=== PATIENT | male | born 1965 | race Caucasian/White ===

== ENCOUNTER 2016-10-22 19:22 | Emergency (ER) | payer OTHER ==
[~2016-10-22] VITALS: Ht 180.3 cm; Wt 92.0 kg
[~2016-10-22 19:22] MED LIST: LYRI75CA OR; METH10TA6 PO; VICOTAB4 PO; [UNRECOGNIZED DRUG - CODE] PO
[2016-10-22 19:31] VITALS: BP 136/92; PULSE 95; RESP 18; TEMP 98.4; O2SAT 95
[2016-10-22] MEDS ORDERED: SODIUM CHLOR 0.9% 1000 ML INJ 1,000 ML IV ONE (20:00)
[2016-10-22] MEDS ORDERED: KETOROLAC TROMETHAMINE 30 MG/ML (IVP) VIAL IV PUSH ONE (20:00)
--- NOTE | 2016-10-22 20:00 | PD ---
HPI Chief Complaint: Cold / Flu Symptoms Time Seen by Provider: 19:42 Travel History International Travel<30 days: No Contact w/Intl Traveler<30days: No Traveled to known affect area: No History of Present Illness HPI 50yo M with no PMH presents to the ED with c/o generalized pain for 1 week. + Throat discomfort. Feels there's phlegm but hard to cough up. +Nasal congestion. +Nausea. States he has pain in his bilateral eyeballs but no changes in vision or trauma. Denies any fever, headache, trauma, visual changes , pain with eye movement, chest pain, sob, abdominal pain, vomiting, focal weakness or numbness. Denies any recent travel. PFSH Past Medical History Cardiovascular Problems: No Diminished Hearing: No Past Surgical History Cholecystectomy: Yes Eye Surgery: Yes Social History Alcohol Use: Yes (OCCASIONAL) Tobacco Use: No Substance Use: No Allergies-Medications (Allergen,Severity, Reaction): Coded Allergies: No Known Allergies (Unverified , 10/22/16) Reported Meds & Prescriptions Reported Meds & Active Scripts Active No Active Prescriptions or Reported Medications Review of Systems Except as stated in HPI: all other systems reviewed are Neg Physical Exam Narrative GENERAL: 50yo M in mild distress. SKIN: Focused skin assessment warm/dry. HEAD: Atraumatic. Normocephalic. EYES: Pupils equal and round at 4mm bilaterally. EOMI. No scleral icterus. No injection or drainage. ENT: No nasal bleeding or discharge. Mucous membranes pink and moist. NECK: Trachea midline. No JVD. CARDIOVASCULAR: Regular rate and rhythm. No murmur appreciated. RESPIRATORY: No accessory muscle use. Clear to auscultation. Breath sounds equal bilaterally. GASTROINTESTINAL: Abdomen soft, non-tender, nondistended. No rebound tenderness or guarding. MUSCULOSKELETAL: No obvious deformities. No clubbing. No cyanosis. No edema. NEUROLOGICAL: Awake and alert. No obvious cranial nerve deficits. Motor grossly within normal limits. Normal speech. PSYCHIATRIC: Appropriate mood and affect; insight and judgment normal. Data Data Last Documented VS Vital Signs Date Time Temp Pulse Resp B/P Pulse Ox O2 Delivery O2 Flow Rate FiO2 10/22/16 20:56 92 18 141/73 97 Room Air 10/22/16 19:31 98.4 Orders Complete Blood Count With Diff (10/22/16 19:49) Basic Metabolic Panel (Bmp) (10/22/16 19:49) Sodium Chlor 0.9% 1000 Ml Inj (Ns 1000 M (10/22/16 20:00) Ketorolac Inj (Toradol Inj) (10/22/16 20:00) Influenzae A/B Antigen (10/22/16 19:49) Group A Rapid Strep Screen (10/22/16 19:49) Strep Culture (Group A) (10/22/16 20:08) Labs Laboratory Tests Test 10/22/16 20:08 White Blood Count 6.6 TH/MM3 Red Blood Count 5.08 MIL/MM3 Hemoglobin 15.6 GM/DL Hematocrit 45.3 % Mean Corpuscular Volume 89.1 FL Mean Corpuscular Hemoglobin 30.8 PG Mean Corpuscular Hemoglobin 34.5 % Concent Red Cell Distribution Width 12.2 % Platelet Count 138 TH/MM3 Mean Platelet Volume 8.0 FL Neutrophils (%) (Auto) 75.9 % Lymphocytes (%) (Auto) 14.0 % Monocytes (%) (Auto) 9.3 % Eosinophils (%) (Auto) 0.1 % Basophils (%) (Auto) 0.7 % Neutrophils # (Auto) 5.1 TH/MM3 Lymphocytes # (Auto) 0.9 TH/MM3 Monocytes # (Auto) 0.6 TH/MM3 Eosinophils # (Auto) 0.0 TH/MM3 Basophils # (Auto) 0.0 TH/MM3 CBC Comment DIFF FINAL Differential Comment Sodium Level 138 MEQ/L Potassium Level 3.5 MEQ/L Chloride Level 101 MEQ/L Carbon Dioxide Level 30.1 MEQ/L Anion Gap 7 MEQ/L Blood Urea Nitrogen 10 MG/DL Creatinine 1.10 MG/DL Estimat Glomerular Filtration 71 ML/MIN Rate Random Glucose 105 MG/DL Calcium Level 8.3 MG/DL MDM Medical Decision Making Medical Screen Exam Complete: Yes Emergency Medical Condition: Yes Interpretation(s) Laboratory Tests Test 10/22/16 20:08 White Blood Count 6.6 TH/MM3 (4.0-11.0) Red Blood Count 5.08 MIL/MM3 (4.50-5.90) Hemoglobin 15.6 GM/DL (13.0-17.0) Hematocrit 45.3 % (39.0-51.0) Mean Corpuscular Volume 89.1 FL (80.0-100.0) Mean Corpuscular Hemoglobin 30.8 PG (27.0-34.0) Mean Corpuscular Hemoglobin 34.5 % Concent (32.0-36.0) Red Cell Distribution Width 12.2 % (11.6-17.2) Platelet Count 138 TH/MM3 (150-450) Mean Platelet Volume 8.0 FL (7.0-11.0) Neutrophils (%) (Auto) 75.9 % (16.0-70.0) Lymphocytes (%) (Auto) 14.0 % (9.0-44.0) Monocytes (%) (Auto) 9.3 % (0.0-8.0) Eosinophils (%) (Auto) 0.1 % (0.0-4.0) Basophils (%) (Auto) 0.7 % (0.0-2.0) Neutrophils # (Auto) 5.1 TH/MM3 (1.8-7.7) Lymphocytes # (Auto) 0.9 TH/MM3 (1.0-4.8) Monocytes # (Auto) 0.6 TH/MM3 (0-0.9) Eosinophils # (Auto) 0.0 TH/MM3 (0-0.4) Basophils # (Auto) 0.0 TH/MM3 (0-0.2) CBC Comment DIFF FINAL Differential Comment Sodium Level 138 MEQ/L (136-145) Potassium Level 3.5 MEQ/L (3.5-5.1) Chloride Level 101 MEQ/L (98-107) Carbon Dioxide Level 30.1 MEQ/L (21.0-32.0) Anion Gap 7 MEQ/L (5-15) Blood Urea Nitrogen 10 MG/DL (7-18) Creatinine 1.10 MG/DL (0.60-1.30) Estimat Glomerular Filtration 71 ML/MIN (>89) Rate Random Glucose 105 MG/DL (74-106) Calcium Level 8.3 MG/DL (8.5-10.1) Differential Diagnosis Viral syndrome vs. Flu like symptom vs. URI vs. sinus headache Narrative Course 50yo M with viral like symptoms. VS stable. Labs reviewed, no leukocytosis. BMP unremarkable. Pt given toradol, acetaminophen and NS IVF. States he feels better. Tolerating PO. Influenza and group A strep negative. Return precautions given. Diagnosis Primary Impression: Viral syndrome Patient Instructions: General Instructions Departure Forms: Tests/Procedures Additional Instructions: Please follow up with your PMD in 1-2 days. Return to the ED if symptoms worsen. Med/Other Pt SpecificInfo: Prescription(s) given Scripts Fluticasone Nasal [place] (Flonase Nasal [place])50 Mcg/Act Spray50 Mcg EACH NARE DAILY #1 BOTTLE Ref 0 Prov:Reyna Hartley DO 10/22/16 Ibuprofen 600 Mg [id number] Mg PO Q8HR PRN (PAIN) #20 TAB Ref 0 Prov:Reyna Hartley DO 10/22/16 Reyna Hartley DO Oct 22, 2016 20:00
[2016-10-22 20:13] VITALS: BP 151/85; PULSE 88; RESP 17; O2SAT 97
[2016-10-22 20:22] LABS: AUTOMATED NEUTROPHIL # 5.1 TH/MM3 (1.8-7.7); BASOPHIL % 0.7 % (0.0-2.0); EOSINOPHIL % 0.1 % (0.0-4.0); HEMATOCRIT 45.3 % (39.0-51.0); HEMO FLAGS DIFF FINAL; LYMPHOCYTE # 0.9 TH/MM3 (1.0-4.8); MEAN CELL VOLUME 89.1 FL (80.0-100.0); MEAN CORPUSCULAR HEMOGLOBIN 30.8 PG (27.0-34.0); MEAN CORPUSCULAR HGB CONC 34.5 % (32.0-36.0); MONO % 9.3 % (0.0-8.0); NEUT % 75.9 % (16.0-70.0); PLATELET COUNT 138 TH/MM3 (150-450); RED BLOOD COUNT 5.08 MIL/MM3 (4.50-5.90); RED CELL DISTRIBUTION WIDTH 12.2 % (11.6-17.2); WHITE BLOOD COUNT 6.6 TH/MM3 (4.0-11.0)
[2016-10-22 20:29] LABS: POTASSIUM 3.5 MEQ/L (3.5-5.1)
[2016-10-22 20:32] LABS: BICARBONATE 30.1 MEQ/L (21.0-32.0)
[2016-10-22 20:56] VITALS: BP 141/73; PULSE 92; RESP 18; O2SAT 97
[2016-10-22] MEDS ORDERED: IBUP-232 PO (21:07)
[2016-10-22] MEDS ORDERED: FLUT1SPR5 EACH NARE (21:07)
[2016-10-22 21:11] VITALS: RESP 18
[2016-10-22] MEDS ORDERED: ACETAMINOPHEN 500 MG CPLT PO ONE (21:15)
[2016-10-22 21:29] VITALS: BP 139/70
== END 2016-10-22 21:30 | disposition home or self-care (01) ==
LOC: PHED 19:22
DX: B34.9 Viral infection, unspecified (principal)
CPT/HCPCS: 80048; 85025; 87081; 87804; 87880; 96361; 96374; 99284; J1885; J7030